=== PATIENT | male | born 1945 | race Caucasian/White ===

== ENCOUNTER 2017-03-11 16:46 | Emergency (ER) | payer MEDICARE, OTHER ==
--- NOTE | 2017-03-11 17:03 | EDM.PDOC ---
ED HPI GENERAL MEDICAL PROBLEM - General Chief Complaint: Genitourinary Problem Stated Complaint: TROUBLE URINATING Time Seen by Provider: 03/11/17 17:02 Source of Information: Reports: Patient, RN, RN Notes Reviewed History Limitations: Reports: No Limitations - History of Present Illness INITIAL COMMENTS - FREE TEXT/NARRATIVE: Complaint of unable to urinate. Significant decreased urine stream yesterday. This morning able to "dribble". Not able to pass any urine for over 8 hours. Admits to suprapubic pain and urinary urgency. Denies flank pain, fever or chills. Severity: Severe Improves with: Reports: None Worsens with: Reports: None Associated Symptoms: Reports: No Other Symptoms - Related Data Allergies Allergy/AdvReac Type Severity Reaction Status Date / Time No Known Allergies Allergy Verified 03/11/17 17:28 Home Meds: Home Meds Hydrochlorothiazide 25 mg PO DAILY 03/11/17 [History] Lisinopril 20 mg PO DAILY 03/11/17 [History] hydrALAZINE [Apresoline] 25 mg PO DAILY 03/11/17 [History] Social & Family History - Family History Family Medical History: Noncontributory ED ROS GENERAL - Review of Systems Review Of Systems: ROS reveals no pertinent complaints other than HPI. ED EXAM, RENAL/ - Physical Exam Exam: See Below Exam Limited By: No Limitations General Appearance: Other (uncomfortable appearing.) Respiratory/Chest: No Respiratory Distress, Lungs Clear, Normal Breath Sounds, No Accessory Muscle Use, Chest Non-Tender Cardiovascular: Normal Peripheral Pulses, Regular Rate, Rhythm, No Edema, No Gallop, No JVD, No Murmur, No Rub GI/Abdominal: Other (suprapubic tenderness with bladdaer distended) (Male) Exam: No Hernia, Normal Inspection, Normal Prostate, Circumcised Rectal (Males) Exam: Deferred Back Exam: Normal Inspection, Full Range of Motion, NT Extremities: Normal Inspection, Normal Range of Motion, Non-Tender, Normal Capillary Refill, No Pedal Edema Psychiatric: Normal Affect, Normal Mood Skin Exam: Warm, Dry, Intact, Normal Color, No Rash Course - Vital Signs Last Recorded V/S: Last Vital Signs Temp 36.1 C 03/11/17 17:08 Pulse 113 H 03/11/17 17:08 Resp 20 03/11/17 17:08 BP 150/92 H 03/11/17 17:08 Pulse Ox 95 03/11/17 17:08 - Orders/Labs/Meds Orders: Active Orders 24 hr Category Date Time Status Insert Sales Catheter [Insert Urinary Catheter] [OM.PC] Care 03/11/17 17:30 Ordered Q24H Urinary Catheter Assessment [RC] ASDIRECTED Care 03/11/17 17:31 Active Labs: Laboratory Tests 03/11/17 03/11/17 03/11/17 Range/Units 17:38 17:38 17:45 WBC 9.5 (5.0-10.0) 10^3/uL RBC 5.35 (4.6-6.2) 10^6/uL Hgb 17.2 (14.0-18.0) g/dL Hct 48.6 (40.0-54.0) % MCV 90.8 (80-100) fL MCH 32.1 (27.0-34.0) pg MCHC 35.4 H (33.0-35.0) g/dL Plt Count 171 (150-450) 10^3/uL Neut % (Auto) 78.4 H (42.2-75.2) % Lymph % (Auto) 13.9 L (20.5-50.1) % [place] % (Auto) 7.1 (2-8) % Eos % (Auto) 0.3 L (1.0-3.0) % Baso % (Auto) 0.3 (0.0-1.0) % Sodium 138 (135-145) mmol/L Potassium 3.1 L (3.6-5.0) mmol/L Chloride 104 (101-111) mmol/L Carbon Dioxide 22.0 (21.0-31.0) mmol/L Anion Gap 15.1 BUN 20 H (7-18) mg/dL Creatinine 0.9 (0.6-1.3) mg/dL Est Cr Clr Drug Dosing 78.86 mL/min Estimated GFR (MDRD) > 60 Glucose 111 H (74-105) mg/dL Calcium 9.2 (8.4-10.2) mg/dl Urine Color Yellow (YELLOW) Urine Appearance Slightly cloudy (CLEAR) Urine pH 6.0 (5.0-9.0) Ur Specific [place] 1.010 (1.005-1.030) Urine Protein Trace H (NEGATIVE) Urine Glucose (UA) Negative (NEGATIVE) Urine Ketones Negative (NEGATIVE) Urine Occult Blood Large H (NEGATIVE) Urine Nitrite Negative (NEGATIVE) Urine Bilirubin Negative (NEGATIVE) Urine Urobilinogen 0.2 (0.2-1.0) mg/dL Ur Leukocyte Esterase Trace H (NEGATIVE) Urine RBC 5-10 H /HPF Urine WBC 10-20 H (0-5/HPF) /HPF Ur Epithelial Cells Rare /HPF Amorphous Sediment Rare (0/HPF) /HPF Urine Bacteria Not seen (0-FEW/HPF) /HPF Urine Mucus Rare /LPF Meds: Medications Discontinued Medications Generic Name Dose Route Start Last Admin Trade Name Freq PRN Reason Stop Dose Admin Hydrocodone Bitart/Acetaminophen 1 tab 03/11/17 17:31 03/11/17 18:04 [place] 325-10 Mg PO 03/11/17 17:32 1 tab ONETIME ONE Administration Phenazopyridine HCl 200 mg 03/11/17 17:31 03/11/17 18:45 Urinary Pain Relief PO 03/11/17 17:32 200 mg ONETIME ONE Administration Potassium Chloride 40 meq 03/11/17 18:25 03/11/17 18:45 Klor-Con 10 PO 03/11/17 18:26 40 meq ONETIME ONE Administration Tamsulosin HCl 0.4 mg 03/11/17 18:28 03/11/17 18:45 Flomax PO 03/11/17 18:29 0.4 mg ONETIME ONE Administration - Radiology Interpretation Free Text/Narrative:: Bladder scanner over 999mls. - Re-Assessments/Exams Free Text/Narrative Re-Assessment/Exam: 03/12/17 16:09 Sales catheter placed by RN. Departure - Departure Time of Disposition: 18:25 Disposition: Home, Self-Care 01 Condition: fair Clinical Impression: Acute urinary retention, Hypokalemia - Discharge Information Instructions: Sales Catheter Care, Adult, Acute Urinary Retention, Male, Easy- to-Read, Hypokalemia Forms: ED Department Discharge Additional Instructions: RX: Pyridium 200mg. RX: Flomax 0.4mg. Follow up in clinic with your doctor in 2 days for recheck and referral to urologist. Return to emergency department, if you have any difficulties with the Sales catheter, significant pain or any fevers. - My Orders Last 24 Hours: My Active Orders 03/11/17 17:30 Insert Sales Catheter [Insert Urinary Catheter] [OM.PC] Q24H 03/11/17 17:31 Urinary Catheter Assessment [RC] ASDIRECTED - Assessment/Plan Last 24 Hours: My Active Orders 03/11/17 17:30 Insert Sales Catheter [Insert Urinary Catheter] [OM.PC] Q24H 03/11/17 17:31 Urinary Catheter Assessment [RC] ASDIRECTED
[2017-03-11 17:10] VITALS: BP 150/92
[2017-03-11] MEDS ORDERED: Acetaminophen/HYDROcodone 325-10 MG Tab PO ONE (17:31)
[2017-03-11] MEDS ORDERED: Phenazopyridine 95 MG Tab PO ONE (17:31)
[2017-03-11 18:02] LABS: CHLORIDE,CL 104 mmol/L (101-111); SODIUM,NA 138 mmol/L (135-145)
[2017-03-11] MEDS ORDERED: Potassium Chloride 10 MEQ Tab.ER PO ONE (18:25)
[2017-03-11] MEDS ORDERED: Tamsulosin 0.4 MG Cap.ER PO ONE (18:28)
== END 2017-03-11 18:43 | disposition home or self-care (01) ==
LOC: DL.ED 16:46
DX: E87.6 Hypokalemia (principal); R33.9 Retention of urine, unspecified; Z79.899 Other long term (current) drug therapy
CPT/HCPCS: 36415; 80048; 81001; 85025; 99283; A9270

== ENCOUNTER 2017-03-25 19:26 | Emergency (ER) | payer MEDICARE, OTHER ==
--- NOTE | 2017-03-25 19:48 | EDM.PDOC ---
ED HPI GENERAL MEDICAL PROBLEM - General Chief Complaint: Genitourinary Problem Stated Complaint: CANNOT URINATE Time Seen by Provider: 03/25/17 19:35 Source of Information: Reports: Patient History Limitations: Reports: No Limitations - History of Present Illness INITIAL COMMENTS - FREE TEXT/NARRATIVE: C/o inability to urinate. Sales placed last Thursday and Removed on Thursday, started on antibiotic for UTI, seemed to be doing alright yesterday, today only able to go a few drop, Uncomfortable this evening. Onset: Today Pelvic Pain Score (Numeric/FACES): 8 - Related Data Allergies Allergy/AdvReac Type Severity Reaction Status Date / Time No Known Allergies Allergy Verified 03/11/17 17:28 Home Meds: Home Meds Hydrochlorothiazide 25 mg PO DAILY 03/11/17 [History] Lisinopril 20 mg PO DAILY 03/11/17 [History] Ciprofloxacin HCl [Cipro] 1 tab PO BID 03/25/17 [History] Docusate Sodium [Colace] 1 - 3 cap PO DAILY PRN 03/25/17 [History] Finasteride [Finasteride] 1 tab PO DAILY 03/25/17 [History] Phenazopyridine HCl [Azo Urinary Pain Relief] 2 tab PO TID PRN 03/25/17 [History ] Tamsulosin HCl 0.4 mg PO DAILY 03/25/17 [History] Past Medical History HEENT History: Reports: Impaired Vision Other HEENT History: wears glasses Cardiovascular History: Reports: Hypertension Respiratory History: Reports: None Gastrointestinal History: Reports: None Psychiatric History: Reports: None Hematologic History: Reports: None Immunologic History: Reports: None Oncologic (Cancer) History: Reports: None Dermatologic History: Reports: None - Past Surgical History GI Surgical History: Reports: Hernia, Abdominal Social & Family History - Family History Family Medical History: Noncontributory - Tobacco Use Smoking Status *Q: Heavy Tobacco Smoker Years of Tobacco use: 45 Packs/Tins Daily: 0.7 - Caffeine Use Caffeine Use: Reports: Coffee - Recreational Drug Use Recreational Drug Use: No ED ROS GENERAL - Review of Systems Review Of Systems: See Below Constitutional: Denies: Fever, Chills HEENT: Reports: No Symptoms Respiratory: Reports: No Symptoms Cardiovascular: Reports: No Symptoms GI/Abdominal: Reports: No Symptoms : Reports: Dysuria, Urgency, Urinary Retention Skin: Reports: No Symptoms Neurological: Reports: No Symptoms ED EXAM, RENAL/ - Physical Exam Exam: See Below Exam Limited By: No Limitations General Appearance: Alert, Mild Distress Eye Exam: Bilateral Eye: EOMI Ears: Normal External Exam Nose: Normal Inspection Throat/Mouth: Normal Inspection Head: Atraumatic, Normocephalic Respiratory/Chest: No Respiratory Distress, Lungs Clear, Normal Breath Sounds Cardiovascular: Normal Peripheral Pulses, Regular Rate, Rhythm GI/Abdominal: Normal Bowel Sounds, Soft, Tender (suprapubic) (Male) Exam: Suprapubic Fullness Back Exam: No: CVA Tenderness (L), CVA Tenderness (R) Extremities: Normal Inspection. No: Pedal Edema Neurological: Alert, Oriented Psychiatric: Normal Affect Skin Exam: Warm, Dry, Intact Course - Vital Signs Last Recorded V/S: Last Vital Signs Temp 96.4 F 03/25/17 19:31 Pulse 67 03/25/17 20:59 Resp 18 03/25/17 20:59 BP 106/58 L 03/25/17 20:59 Pulse Ox 93 L 03/25/17 20:59 - Orders/Labs/Meds Orders: Active Orders 24 hr Category Date Time Status Insert Urinary Catheter [OM.PC] Q24H Care 03/25/17 19:45 Ordered Urinary Catheter Assessment [RC] ASDIRECTED Care 03/25/17 19:45 Active CULTURE URINE [RM] Stat Lab 03/25/17 19:45 Received Labs: Laboratory Tests 03/25/17 03/25/17 03/25/17 Range/Units 19:45 19:53 19:53 WBC 9.0 (5.0-10.0) 10^3/uL RBC 4.46 L (4.6-6.2) 10^6/uL Hgb 14.4 (14.0-18.0) g/dL Hct 41.1 (40.0-54.0) % MCV 92.2 (80-100) fL MCH 32.3 (27.0-34.0) pg MCHC 35.0 (33.0-35.0) g/dL Plt Count 266 (150-450) 10^3/uL Neut % (Auto) 67.6 (42.2-75.2) % Lymph % (Auto) 21.8 (20.5-50.1) % [place] % (Auto) 8.7 H (2-8) % Eos % (Auto) 1.3 (1.0-3.0) % Baso % (Auto) 0.6 (0.0-1.0) % Add Manual Diff Yes Neutrophils % (Manual) 66 % Band Neutrophils % 1 % Lymphocytes % (Manual) 24 % Atypical Lymphs % 2 % Monocytes % (Manual) 7 % Sodium 141 (135-145) mmol/L Potassium 3.1 L (3.6-5.0) mmol/L Chloride 104 (101-111) mmol/L Carbon Dioxide 24.0 (21.0-31.0) mmol/L Anion Gap 16.1 BUN 13 (7-18) mg/dL Creatinine 0.9 (0.6-1.3) mg/dL Est Cr Clr Drug Dosing 78.86 mL/min Estimated GFR (MDRD) > 60 BUN/Creatinine Ratio 14.44 Glucose 130 H (74-105) mg/dL Calcium 8.6 (8.4-10.2) mg/dl Total Bilirubin 0.6 (0.2-1.0) mg/dL AST 17 (10-42) IU/L ALT 19 (10-60) IU/L Alkaline Phosphatase 73 (42-121) IU/L Total Protein 6.7 (6.7-8.2) g/dl Albumin 3.4 (3.2-5.5) g/dl Globulin 3.3 Albumin/Globulin Ratio 1.03 Urine Color Yellow (YELLOW) Urine Appearance Slightly cloudy (CLEAR) Urine pH 5.5 (5.0-9.0) Ur Specific [place] <= 1.005 (1.005-1.030) Urine Protein Negative (NEGATIVE) Urine Glucose (UA) Negative (NEGATIVE) Urine Ketones Negative (NEGATIVE) Urine Occult Blood Moderate H (NEGATIVE) Urine Nitrite Negative (NEGATIVE) Urine Bilirubin Negative (NEGATIVE) Urine Urobilinogen 0.2 (0.2-1.0) mg/dL Ur Leukocyte Esterase Trace H (NEGATIVE) Urine RBC 5-10 H /HPF Urine WBC 10-20 H (0-5/HPF) /HPF Urine Bacteria Rare (0-FEW/HPF) /HPF Meds: Medications Discontinued Medications Generic Name Dose Route Start Last Admin Trade Name Freq PRN Reason Stop Dose Admin Potassium Chloride 40 meq 06/21/17 20:44 03/25/17 20:56 Klor-Con 10 PO 03/25/17 20:45 40 meq ONETIME ONE Administration - Re-Assessments/Exams Free Text/Narrative Re-Assessment/Exam: 03/26/17 03:12 700cc from gravity bag prior to discharge, clear concentrated urine Departure - Departure Time of Disposition: 20:40 Disposition: Home, Self-Care 01 Condition: Fair Clinical Impression: UTI, Urinary tract infectious disease, Retention of urine, Hypokalemia - Discharge Information Instructions: Sales Catheter Care, Adult, Urinary Tract Infection, Adult, Easy- to-Read Forms: ED Department Discharge Additional Instructions: Sales care, Leg bag during day and gravity badg at night Clinic follow up on Thursday Continue Cipro 500mg twice daily through Thursday AZO per prior instruction use Fluids recheck potassium on Thursday Miralax one capful daily for constipation Urgent follow up if develop fever or chills Urology appointment as scheduled - My Orders Last 24 Hours: My Active Orders 03/25/17 19:45 Insert Urinary Catheter [OM.PC] Q24H Urinary Catheter Assessment [RC] ASDIRECTED CULTURE URINE [RM] Stat - Assessment/Plan Last 24 Hours: My Active Orders 03/25/17 19:45 Insert Urinary Catheter [OM.PC] Q24H Urinary Catheter Assessment [RC] ASDIRECTED CULTURE URINE [RM] Stat
[2017-03-25 20:17] LABS: CHLORIDE,CL 104 mmol/L (101-111); SODIUM,NA 141 mmol/L (135-145)
[2017-03-25] MEDS ORDERED: Potassium Chloride 10 MEQ Tab.ER PO ONE (20:44)
[2017-03-25 21:02] VITALS: BP 106/58
== END 2017-03-25 21:02 | disposition home or self-care (01) ==
LOC: DL.ED 19:26
DX: N39.0 Urinary tract infection, site not specified (principal); E87.6 Hypokalemia; I10 Essential (primary) hypertension; F17.210 Nicotine dependence, cigarettes, uncomplicated; Z98.890 Other specified postprocedural states; Z79.899 Other long term (current) drug therapy
CPT/HCPCS: 36415; 51702; 80053; 81001; 85025; 87086; 99283; A9270

== ENCOUNTER 2025-03-11 09:00 | Emergency (ER) | payer MEDICARE, OTHER ==
[2025-03-11 09:38] LABS: BASOPHILS PERCENT AUTO 0.6 % (0.0-1.0); EOSINOPHILS PERCENT AUTO 2.3 % (1.0-3.0); HEMATOCRIT 46.7 % (40.0-54.0); HEMOGLOBIN 15.9 g/dL (14.0-18.0); LYMPHOCYTES PERCENT AUTO 17.3 % (20.5-50.1); MEAN CORPUSCULAR HEMOGLOBIN 31.2 pg (27.0-34.0); MEAN CORPUSCULAR VOLUME 91.7 fL (80-100); NEUTROPHILS PERCENT AUTO 69.8 % (42.2-75.2); PLATELET COUNT,PLT 152 10^3/uL (150-450); RED BLOOD CELL COUNT 5.09 10^6/uL (4.6-6.2)
[2025-03-11 09:57] LABS: PROTHROMBIN TIME 10.6 SEC (9.0-12.0); PTT,PARTIAL THROMBOPLSTIN TIME 26.3 SEC (22.0-34.0)
[2025-03-11 09:59] LABS: ANION GAP 17.6 mEq/L (7-13); BLOOD UREA NITROGEN,BUN 22 mg/dL (8-26); BUN/CREATININE RATIO 15.7 (No establ ref range); CARBON DIOXIDE,CO2 22 mmol/L (24-29); CHLORIDE,CL 108 mmol/L (98-109); CREATININE 1.4 mg/dL (0.6-1.3); ESTIMATED GFR 51 mL/min (>=60); GLUCOSE RANDOM 121 mg/dL (70-105); POTASSIUM,K 3.6 mmol/L (3.5-4.9); SODIUM,NA 144 mmol/L (138-146)
[2025-03-11 10:00] LABS: CALCIUM 1.15
[2025-03-11] MEDS: Ondansetron 4 MG/2 ML SDV IVPUSH ONE (10:42)
[2025-03-11] MEDS: Sodium Chloride 0.9% 1,000 ML IV SCH (10:50)
[2025-03-11] MEDS: Iopamidol 612 MG/ML 100 ML Bottle IVPUSH ONE (11:00)
[2025-03-11] MEDS: GI Cocktail Oral Solution 30 ML PO ONE (11:59)
[2025-03-11 13:05] VITALS: BP 147/70; PULSE 58
[2025-03-11 14:22] LABS: A/G RATIO 0.9; ALANINE AMINOTRANSFERASE,ALT 18 U/L (16-63); ALBUMIN 3.8 g/dL (3.4-5.0); ALKALINE PHOSPHATASE 93 U/L (46-116); ASPARTATE AMNIOTRANSFERASE,AST 18 U/L (15-37); PROTEIN TOTAL,TP 7.9 g/dL (6.4-8.2)
== END 2025-03-11 12:54 | disposition home or self-care (01) ==
LOC: DL.ED 09:00
DX: K21.9 Gastro-esophageal reflux disease without esophagitis (principal); I10 Essential (primary) hypertension; Z79.899 Other long term (current) drug therapy; Z86.16 Personal history of COVID-19; Z87.891 Personal history of nicotine dependence
CPT/HCPCS: 36415; 71045; 74177; 80053; 83735; 84484; 85025; 85610; 85730; 93005; 96361; 96374; 99284; 99284-25; A9270-GY; J2405; J7030; Q9967